=== PATIENT | male | born 2000 | race Two or more races ===

== ENCOUNTER 2022-10-14 13:31 | Outpatient (OUT) | payer OTHER, SELFPAY ==
--- NOTE | 2022-10-14 13:46 | XR_ITS ---
The [address] [address] Patient Name: LUCY SHIPMAN MRN: [id number] date: 2000 Sex: M Assigned Patient Location: RAD Current Patient Location: RAD Accession/Order Number: [id number] Exam Date: 10/14/2022 13:57 Report Date: 10/14/2022 14:22 At the request of: MARY JAVIER Procedure: XR ankle LT min 3V PROCEDURE: XR ankle LT min 3V COMPARISON: None. HISTORY: Left Ankle Sprain FINDINGS: BONES:No fracture, acute abnormality, or significant arthropathy. SOFT TISSUES:Soft tissue swelling EFFUSION:None visible. OTHER: Negative. XR/XR ankle LT min 3V IMPRESSION: Soft tissue swelling, no acute fracture Electronically authenticated by: YASSINE REVELES Date: 10/14/2022 14:22
== END 2022-10-14 13:32 | disposition home or self-care (01) ==
LOC: RAD 13:38
PROVIDERS: PCP Nurse Practitioner Family; Visit Provider Nurse Practitioner Family
DX: S93.402A Sprain of unspecified ligament of left ankle, initial encounter (principal)
CPT/HCPCS: 73610